=== PATIENT | female | born 1965 | race Caucasian/White ===

== ENCOUNTER 2022-12-05 15:25 | Emergency (ER) | payer BC ==
[~2022-12-05] VITALS: Ht 157.5 cm; Wt 92.0 kg
[2022-12-05 18:25] LABS: BLOOD UREA NITROGEN 8 MG/DL (9-23); CALCIUM LEVEL 8.5 MG/DL (8.5-10.1); CARBON DIOXIDE LEVEL 28 MMOL/L (20-31); CHLORIDE LEVEL 104 MMOL/L (98-107); CREATININE FOR GFR 0.55 MG/DL (0.55-1.30); GLOMERULAR FILTRATION RATE > 60.0 (>51); GLUCOSE, FASTING 87 MG/DL (60-100); POTASSIUM SERUM 3.8 MMOL/L (3.5-5.1); SODIUM LEVEL 142 MMOL/L (136-145)
[2022-12-05] MEDS ORDERED: HYOSCYAMINE SULFATE 0.125 MG SUBL TABLET PO ONE (19:05)
[2022-12-05] MEDS ORDERED: PANTOPRAZOLE 40MG VIAL IV ONE (19:05)
[2022-12-05] MEDS ORDERED: ONDANSETRON 4MG 2ML VIAL IV ONE (19:05)
[2022-12-05] MEDS ORDERED: MAALOX 30 ML SUSP *UDC PO ONE (19:05)
[2022-12-05] MEDS ORDERED: NS 1,000 ML IV ONE (19:05)
[2022-12-05] MEDS ORDERED: SUCRALFATE 1 GM TAB PO ONE (19:05)
[2022-12-05 19:23] LABS: LIPASE 21 U/L (12-53)
[2022-12-05 19:25] LABS: ALBUMIN 3.7 G/DL (3.2-5.2); ALKALINE PHOSPHATASE 105 U/L (46-116); ALT/SGPT 20 U/L (7.0-40); AST/SGOT 26 U/L (<34); BILIRUBIN,DIRECT 0.2 MG/DL (<0.4); BILIRUBIN,TOTAL 0.5 MG/DL (0.3-1.2); TOTAL PROTEIN 6.9 G/DL (5.7-8.2)
[2022-12-05] MEDS: GASTROGRAFIN SOLUTION 30ML PO SCH ×2 (20:09→20:33)
[2022-12-05 20:47] LABS: BASO % 0.4 % (0.0-1.0); EOS # 0.1 10^3/uL (0.0-0.5); EOS % 2.5 % (0.0-3.0); HEMATOCRIT 25.5 % (36.0-47.0); HEMOGLOBIN 7.1 g/dl (12.0-15.5); LYMPH # 1.2 10^3/uL (1.5-5.0); LYMPH % 22.9 % (24.0-44.0); MEAN CORPUSCULAR HEMOGLOBIN 21.6 pg (27.0-33.0); MEAN CORPUSCULAR HGB CONC 27.8 g/dl (32.0-36.5); MEAN CORPUSCULAR VOLUME 77.5 fl (80.0-96.0); MONO # 0.4 10^3/uL (0.0-0.8); MONO % 7.6 % (2.0-8.0); NEUTROPHILS # 3.4 10^3/uL (1.5-8.5); NEUTROPHILS % 66.2 % (36.0-66.0); PLATELET COUNT, AUTOMATED 130 10^3/uL (150-450); RED BLOOD COUNT 3.29 10^6/uL (4.00-5.40); WHITE BLOOD COUNT 5.2 10^3/uL (4.0-10.0)
[2022-12-05] MEDS ORDERED: ISOVUE-370 76% 100ML VIAL As Ordered ONE (20:50)
[2022-12-05] MEDS ORDERED: CARA1TAB6 PO ×2 (23:03→23:54)
[2022-12-05 23:14] VITALS: BP 142/81; TEMP 97.1; O2SAT 95
== END 2022-12-05 23:55 | disposition home or self-care (01) ==
LOC: M ED 20:01
DX: R10.12 Left upper quadrant pain (principal); R10.32 Left lower quadrant pain; D64.9 Anemia, unspecified; Z98.84 Bariatric surgery status; Z87.19 Personal history of other diseases of the digestive system
CPT/HCPCS: 74177; 80048; 80076; 83605; 83690; 85025; 96361; 96374; 96375; 99284; C9113; J2405; Q9963; Q9967